=== PATIENT | female | born 1940 | race Caucasian/White ===

== ENCOUNTER → 2017-09-26 | Outpatient (CLI) | payer OTHER | LOC: CIMAGING 09:49 | PROVIDERS: ATTEND Physician Assistant Medical | DX: Z12.31 Encounter for screening mammogram for malignant neoplasm of breast (principal); Z80.3 Family history of malignant neoplasm of breast; R92.8 Other abnormal and inconclusive findings on diagnostic imaging of breast ==

== ENCOUNTER → 2017-10-10 | Outpatient (CLI) | payer OTHER | LOC: CIMAGING 12:38 | PROVIDERS: ATTEND Physician Assistant Medical | DX: R92.8 Other abnormal and inconclusive findings on diagnostic imaging of breast (principal); Z80.3 Family history of malignant neoplasm of breast | CPT/HCPCS: 76641-PO ==

== ENCOUNTER → 2018-10-02 | Outpatient (CLI) | payer OTHER | LOC: CIMAGING 10:10 | PROVIDERS: ATTEND Physician Assistant Medical | DX: Z12.31 Encounter for screening mammogram for malignant neoplasm of breast (principal); Z80.3 Family history of malignant neoplasm of breast ==